=== PATIENT | female | born 1935 | race Caucasian/White ===

== ENCOUNTER 2019-01-28 12:22 | Emergency (ER) | payer OTHER ==
[~2019-01-28] VITALS: Ht 142.2 cm; Wt 59.0 kg
[~2019-01-28 12:22] MED LIST: ARICEPT5 MG; AVALIDE 150-12.1 TA1; GLUCOTROL10 MG; NEURONTIN300 MG; SYNTHROID100 MCG; ZOCOR40 MG
== END 2019-01-28 22:30 | disposition home or self-care (01) ==
LOC: ER 12:22
DX: S63.592A Other specified sprain of left wrist, initial encounter (principal); S00.83XA Contusion of other part of head, initial encounter; W01.198A Fall on same level from slipping, tripping and stumbling with subsequent striking against other object, initial encounter; Y93.89 Activity, other specified; Y92.098 Other place in other non-institutional residence as the place of occurrence of the external cause; Y99.8 Other external cause status